=== PATIENT | female | born 1990 | race Caucasian/White ===

== ENCOUNTER 2017-05-23 15:45 | Inpatient (IN) | payer OTHER ==
[2017-05-23] MEDS ORDERED: Promethazine HCl 25 MG/ML VIAL ONE (16:00)
[2017-05-23] MEDS ORDERED: Lidocaine 4% Cream 5 GM TUBE w/ Tegaderm ONE (16:02)
--- NOTE | 2017-05-23 16:10 | PDOC.LDHP ---
Labor and Delivery H&P HPI: @1600: called to ER bed 10 stat for imminenet delivery. Carla, our charge nurse went prior to me. I arrived at [address] Cindi Ibarra arriving at 1604. Patient is a at 39-40 weeks with no other complications. in ER bed 10...10/ c/+3/Cephalic. History limited as patient with imminent delivery. Current gestational age (weeks): 39 Dating criteria: last menstrual period Current complications: none Abnormal US findings: No Social history: none - Physical Exam Vital signs reviewed and normal: yes General: NAD - Assessment L&D Assessment: term patient in labor - Plan Plan: other (Ptient with imminent delivery in ER bed 10...Dr ibarra assited with delivery while I was in room as stand by. Vigorous male . Delivery by Randy at 1604. topical lidocaine applied at perineum. Tay present in room for eval. Hx GBS pos..no time for ABX.)
[2017-05-23] MEDS ORDERED: Bisacodyl 10 MG SUPP PR PRN ×3 (16:12→21:28)
[2017-05-23] MEDS ORDERED: Lanolin Ointment 7 GM TUBE TOP PRN ×2 (16:12→21:27)
[2017-05-23] MEDS ORDERED: Milk Of Magnesia 30 ML UDCUP PO PRN ×4 (16:12→21:29)
[2017-05-23] MEDS ORDERED: Benzocaine/Menthol 20-0.5% 60 ML CAN TOP PRN ×2 (16:12→21:27)
[2017-05-23] MEDS ORDERED: Acetaminophen/Codeine 30-300mg Tablet PO PRN ×3 (16:12→21:26)
[2017-05-23] MEDS ORDERED: Preparation H Ointment 28 GM TUBE PR PRN ×2 (16:12→21:27)
[2017-05-23] MEDS ORDERED: LR / Pitocin 40 units/1000 ml 1,000 ML IV SCH ×3 (16:15→21:30)
--- NOTE | 2017-05-23 16:47 | PDOC.EVN ---
Event Note - Event Note Event Note: @7410: I just reevaluated the patient. Cx by me is unchanged at 05/08/. Cat 1 strip. As still latent phase at 1cm, I have discussed with her outpatient follow up. L&D instructions given. She will see Dr pro on Sunday this week.
[2017-05-23] MEDS ORDERED: Ferrous Sulfate 325 MG TAB PO SCH (17:00)
[2017-05-23] MEDS ORDERED: Lactated Ringer's 1,000 ML IV SCH (17:00)
[2017-05-23 17:35] VITALS: BMI 31.3
[2017-05-23 17:54] LABS: HBSAg Index 0.13 S/CO (0-0.99); HIV (1/2) Antibody/Antigen Non-Reactive (NonReactive); HIV 1/2 INDEX 0.14 S/CO (<1.00); Hep B Surf Ag Non-Reactive S/CO (NonReactive); Syphilis Antibody Nonreactive (Nonreactive); Syphilis Antibody Index 0.06 S/CO (<1.00 Non-Reactive)
[2017-05-23] MEDS ORDERED: Ondansetron HCl/PF 4 MG/2 ML Vial IVP PRN ×2 (18:31→21:29)
[2017-05-23] MEDS ORDERED: Acetaminophen 500 MG TAB PO PRN ×2 (18:31→21:27)
[2017-05-23] MEDS ORDERED: HYDROcodone/Acetaminophen 5/325 mg Tablet PO PRN (18:31)
[2017-05-23] MEDS ORDERED: Lidocaine 1% (PF) 30 ML VIAL SC PRN (18:31)
[2017-05-23] MEDS ORDERED: Adacel (T-DAP) 0.5 ML VIAL IM ONE ×2 (18:31→22:00)
[2017-05-23] MEDS ORDERED: LR / Pitocin 40 units/1000 ml 1,000 ML IV PRN ×2 (18:31→21:38)
[2017-05-23] MEDS ORDERED: Promethazine HCl 25 MG/ML VIAL IM PRN ×2 (18:31→21:29)
[2017-05-23 20:04] LABS: Mean Corpuscular HGB CONC 34.1 g/dL (32.0-36.0); Mean Corpuscular Hemoglobin 29.1 pg (27.0-31.0); Mean Corpuscular Volume 85.3 fl (81.0-99.0); Mean Platelet Volume 9.4 fL (7.4-10.4); Platelet Count 212 thou/uL (130-400); RBC Distribution Width 13.5 % (11.5-14.5); Red Blood Cell (RBC) Count 4.13 mill/uL (4.20-5.40); White Blood Cell (WBC) Count 9.3 thou/uL (4.8-10.8)
[2017-05-23] MEDS ORDERED: Docusate Calcium (SURFAK) 240 MG CAP PO SCH ×2 (21:00)
[2017-05-23] MEDS: Ibuprofen 800 MG TAB PO SCH (21:36)
[2017-05-23] MEDS: Docusate Calcium (SURFAK) 240 MG CAP PO SCH (21:36)
[2017-05-23] MEDS: Acetaminophen/Codeine 30-300mg Tablet PO PRN (21:37)
[2017-05-23] MEDS ORDERED: Measles/Mumps/Rubella 10 MCG/0.5 ML VIAL SC ONE (22:00)
[2017-05-23] MEDS ORDERED: Varicella virus, LIVE 0.5 ML VIAL SC ONE (22:00)
[2017-05-23] MEDS ORDERED: Ibuprofen 800 MG TAB PO SCH (22:00)
[2017-05-24] MEDS: Acetaminophen/Codeine 30-300mg Tablet PO PRN (04:00)
[2017-05-24] MEDS: Ibuprofen 800 MG TAB PO SCH ×3 (06:17→21:16)
[2017-05-24] MEDS ORDERED: Ferrous Sulfate 325 MG TAB PO SCH (08:00)
[2017-05-24] MEDS ORDERED: Prenatal Vitamin 1 TAB PO SCH (09:00)
[2017-05-24] MEDS: Ferrous Sulfate 325 MG TAB PO SCH (09:31)
[2017-05-24] MEDS: Docusate Calcium (SURFAK) 240 MG CAP PO SCH ×2 (09:31→21:16)
[2017-05-24] MEDS ORDERED: Measles/Mumps/Rubella 10 MCG/0.5 ML VIAL SC ONE (21:00)
[2017-05-24] MEDS ORDERED: Adacel (T-DAP) 0.5 ML VIAL IM ONE (21:00)
[2017-05-24] MEDS ORDERED: Varicella virus, LIVE 0.5 ML VIAL SC ONE (21:00)
[2017-05-25] MEDS: Ferrous Sulfate 325 MG TAB PO SCH ×2 (02:40→09:18)
[2017-05-25] MEDS: Ibuprofen 800 MG TAB PO SCH (06:32)
[2017-05-25 08:38] VITALS: BP 119/65; TEMP 97.6
[2017-05-25] MEDS: Docusate Calcium (SURFAK) 240 MG CAP PO SCH (09:18)
== END 2017-05-25 11:05 | disposition home or self-care (01) | DRG 775 ==
LOC: L&D/OP 15:45 → ERS 15:45 → EDSTATUS 15:48 → L&D 16:58 → 3SW 20:29
PROVIDERS: ADMIT Obstetrics & Gynecology; ATTEND Obstetrics & Gynecology
PROC: 10E0XZZ Delivery of Products of Conception, External Approach (ICD-10-PCS; principal; 2017-05-23)
PROC: 3E0234Z Introduction of Serum, Toxoid and Vaccine into Muscle, Percutaneous Approach (ICD-10-PCS; 2017-05-23)
PROC: 10E0XZZ Delivery of Products of Conception, External Approach (ICD-10-PCS; 2017-05-23)
DX: O70.0 First degree perineal laceration during delivery (principal); Z23 Encounter for immunization; Z3A.39 39 weeks gestation of pregnancy; Z37.0 Single live birth
CPT/HCPCS: 85027; 86780; 87340; 87389; 90715; 96372; 99285; J2550

== ENCOUNTER 2017-06-16 18:03 | Emergency (ER) | payer OTHER | END 2017-06-16 18:39 | disposition home or self-care (01) | LOC: ERS 18:03 | DX: N61.0 Mastitis without abscess (principal) | CPT/HCPCS: 99283 ==

== ENCOUNTER 2018-04-18 09:58 | Outpatient (CLI) | payer OTHER ==
--- NOTE | 2018-04-18 12:58 | ULT ---
ULTRASOUND COMPLETE, GREATER THAN 14 WEEKS: History: Anatomy and size and dates. FINDINGS: Single viable intrauterine fetus is noted in variable presentation. The placenta is anterior and lowe r lying extending to very near the edge of the os. Consider follow up examination later in to document potential translocation of the placenta from the cervical os. heart rate 149 beats/ minute. Cervix approximately 3.6 cm. Amniotic fluid is within normal limits. anatomy: Visualized brain, four chamber heart, three vessel cord, stomach, bladder, kidneys, spine, and extremities are unremarkable. biometry: BPD 4.2 cm 18 weeks 5 days HC 15.9 cm 18 weeks 5 days AC 15.2 cm 20 weeks 3 days FL 3.2 cm 19 weeks 6 days IMPRESSION: Single viable intrauterine fetus at 19 weeks 2 day with an CHRIS of 6-4-19. Estimated weight 325 grams. Low lying anterior placenta. Consider follow up for further assessment. No ron placenta prev ia at this stime. POS: [facility]
== END 2018-04-18 09:59 | disposition home or self-care (01) ==
LOC: SCSULT 09:58
PROVIDERS: ATTEND Family Medicine
DX: Z34.82 Encounter for supervision of other normal pregnancy, second trimester (principal); Z3A.19 19 weeks gestation of pregnancy
CPT/HCPCS: 76805

== ENCOUNTER 2018-05-27 08:03 | Outpatient (CLI) | payer OTHER ==
--- NOTE | 2018-05-27 09:33 | ULT ---
ULTRASOUND IV FOLLOWUP: HISTORY: Low-lying placenta. COMPARISON: OB ultrasound 04/18/2018. FINDINGS: Real-time, garcía scale, and color evaluation with spectral analysis of the gravid uterus was performed transabdominal approach. The cervix was 3.8 cm in length. Its distal tip is away from the internal os, at least 4 cm away. The placenta is anterior. Amniotic fluid index is 10.1 cm. heart rate documented at 135 b.p.m. IMPRESSION: No evidence of placenta previa or low-lying placenta. POS: [facility]
== END 2018-05-27 08:04 | disposition home or self-care (01) ==
LOC: SCSULT 08:03
PROVIDERS: ATTEND Family Medicine
DX: O44.42 Low lying placenta NOS or without hemorrhage, second trimester (principal)
CPT/HCPCS: 76816

== ENCOUNTER 2018-09-06 16:18 | Inpatient (IN) | payer OTHER ==
[2018-09-06] MEDS ORDERED: Ibuprofen 800 MG TAB PO PRN (18:12)
[2018-09-06] MEDS ORDERED: Lidocaine 1% (PF) 30 ML VIAL SC PRN (18:12)
[2018-09-06] MEDS ORDERED: Ondansetron PF 4 MG/2 ML Vial IVP PRN ×3 (18:12→23:26)
[2018-09-06] MEDS ORDERED: HYDROcodone/Acetaminophen 5/325 mg Tablet PO PRN ×3 (18:12→23:26)
[2018-09-06] MEDS ORDERED: Lactated Ringer's 1,000 ML IV SCH ×2 (18:15)
[2018-09-06] MEDS ORDERED: Fentanyl 4 mcg/Bup 0.1% Cadd 100 ML ONE (19:28)
[2018-09-06 19:40] VITALS: BMI 27.3
[2018-09-06 19:42] LABS: Hemoglobin 10.7 g/dL (12.0-16.0); Mean Corpuscular HGB CONC 33.6 g/dL (32.0-36.0); Mean Corpuscular Hemoglobin 27.8 pg (27.0-31.0); Mean Corpuscular Volume 82.6 fL (78.0-98.0); Mean Platelet Volume 8.4 fL (7.4-10.4); Platelet Count 228 thou/uL (130-400); RBC Distribution Width 11.9 % (11.5-14.5); Red Blood Cell (RBC) Count 3.84 mill/uL (4.20-5.40); White Blood Cell (WBC) Count 9.9 thou/uL (4.8-10.8)
[2018-09-06] MEDS ORDERED: Butorphanol Tartrate 1 MG/ML VIAL ONE (20:06)
[2018-09-06] MEDS ORDERED: ePHEDrine/0.9% NaCl/PF SYRINGE 50 mg/10 ml SLOW IVP PRN (20:48)
[2018-09-06] MEDS ORDERED: Promethazine HCl 25 MG/ML VIAL IM PRN (20:48)
[2018-09-06] MEDS ORDERED: Naloxone HCl 0.4 mg/ml Vial IVP PRN ×2 (20:48)
[2018-09-06] MEDS ORDERED: Acetaminophen 325 MG TAB PO PRN (20:48)
[2018-09-06] MEDS ORDERED: diphenhydrAMINE 50 MG/ML VIAL IVP PRN (20:48)
[2018-09-06] MEDS ORDERED: Lactated Ringer's 500 ML IV PRN (20:48)
[2018-09-06] MEDS ORDERED: Communication Order-Pharmacy FS SCH (21:00)
[2018-09-06] MEDS ORDERED: Fentanyl 4 mcg/Bupivacaine 0.1% Cassette 100 ML EPIDURAL SCH (21:00)
[2018-09-06 21:29] LABS: Syphilis Antibody Nonreactive (Nonreactive); Syphilis Antibody Index 0.05 S/CO (<1.00 Non-Reactive)
[2018-09-06 22:27] LABS: HBSAg Index 0.28 S/CO (0-0.99); Hep B Surf Ag Non-Reactive S/CO (NonReactive)
[2018-09-06] MEDS: NS / Oxytocin 40 units/1000ml 1,000 ML IV PRN ×2 (23:04→23:05)
[2018-09-06] MEDS ORDERED: Lanolin Ointment 7 GM TUBE TOP PRN (23:26)
[2018-09-06] MEDS ORDERED: Benzocaine-Menthol 82.5 ML CAN TOP PRN (23:26)
[2018-09-06] MEDS ORDERED: traMADol HCl 50 MG TAB PO PRN (23:26)
[2018-09-06] MEDS ORDERED: Acetaminophen/Codeine 30-300mg Tablet PO PRN (23:26)
[2018-09-06] MEDS ORDERED: Preparation H Ointment 28 GM TUBE PR PRN (23:26)
[2018-09-06] MEDS ORDERED: diphenhydrAMINE 25 MG CAP PO PRN (23:26)
[2018-09-06] MEDS ORDERED: Milk Of Magnesia 30 ML UDCUP PO PRN (23:26)
[2018-09-06] MEDS ORDERED: NS / Oxytocin 40 units/1000ml 1,000 ML IV SCH (23:26)
[2018-09-06] MEDS ORDERED: Bisacodyl 10 MG SUPP PR PRN (23:26)
[2018-09-07] MEDS: Ibuprofen 800 MG TAB PO SCH ×3 (07:12→23:11)
[2018-09-07] MEDS: Prenatal Vitamin 1 TAB PO SCH (10:09)
[2018-09-07] MEDS: Docusate Calcium (SURFAK) 240 MG CAP PO SCH ×2 (10:09→23:11)
[2018-09-07] MEDS ORDERED: Bupivacaine/Epinephrine 0.25% 30 ML VIAL ONE (11:11)
[2018-09-07] MEDS: Ferrous Sulfate 325 MG TAB PO SCH ×2 (15:09→18:00)
[2018-09-08] MEDS: Ibuprofen 800 MG TAB PO SCH (08:16)
[2018-09-08] MEDS: Prenatal Vitamin 1 TAB PO SCH (08:17)
[2018-09-08] MEDS: Docusate Calcium (SURFAK) 240 MG CAP PO SCH (08:17)
[2018-09-08 09:37] VITALS: BP 114/69; TEMP 97.7
== END 2018-09-08 10:00 | disposition home or self-care (01) | DRG 807 ==
LOC: L&D/OP 16:18 → L&D 21:14 → 3SW 09-07 00:23
PROVIDERS: ADMIT Family Medicine; ATTEND Family Medicine
PROC: 10E0XZZ Delivery of Products of Conception, External Approach (ICD-10-PCS; principal; 2018-09-06)
DX: O48.0 Post-term pregnancy (principal); Z37.0 Single live birth; Z3A.40 40 weeks gestation of pregnancy
CPT/HCPCS: 36415; 85027; 86780; 86850; 86900; 86901; 87340; 99285; J0595